=== PATIENT | male | born 1970 | race Caucasian/White ===

== ENCOUNTER 2017-08-01 19:07 | Emergency (ER) | payer OTHER ==
[~2017-08-01] VITALS: Ht 172.7 cm; Wt 83.9 kg
[~2017-08-01 19:07] MED LIST: ATOR20 PO; MECL12.5 PO; Nicoderm Cq1 EAC1 TD
[2017-08-01] MEDS ORDERED: VARE1 PO (19:16)
[2017-08-01] MEDS ORDERED: Robaxin500 MG PO (19:48)
== END 2017-08-01 19:54 | disposition home or self-care (01) ==
LOC: ER 19:07
DX: M25.571 Pain in right ankle and joints of right foot (principal); F17.200 Nicotine dependence, unspecified, uncomplicated; Z79.899 Other long term (current) drug therapy; W50.1XXA Accidental kick by another person, initial encounter
CPT/HCPCS: 73610; 99283

== ENCOUNTER 2017-10-10 21:47 | Emergency (ER) | payer OTHER ==
[~2017-10-10] VITALS: Ht 175.3 cm; Wt 83.9 kg
[~2017-10-10 21:47] MED LIST changes: +Robaxin500 MG PO; +VARE1 PO
[2017-10-10] MEDS ORDERED: METO25ER (22:29)
[2017-10-10] MEDS ORDERED: ATOR10 (22:29)
== END 2017-10-11 00:06 | disposition left against medical advice (07) ==
LOC: ER 21:47
DX: Z53.21 Procedure and treatment not carried out due to patient leaving prior to being seen by health care provider (principal)

== ENCOUNTER 2020-07-09 18:55 | Emergency (ER) | payer OTHER ==
[~2020-07-09] VITALS: Ht 175.3 cm; Wt 79.4 kg
[~2020-07-09 18:55] MED LIST changes: +ATOR10; +METO25ER
[2020-07-09] MEDS ORDERED: NAPR550 PO (20:12)
== END 2020-07-09 20:27 | disposition home or self-care (01) ==
LOC: ER 18:55
DX: S46.011A Strain of muscle(s) and tendon(s) of the rotator cuff of right shoulder, initial encounter (principal); Z79.899 Other long term (current) drug therapy; X50.1XXA Overexertion from prolonged static or awkward postures, initial encounter
CPT/HCPCS: 73030; 99283-25